=== PATIENT | male | born 1950 | race Caucasian/White ===

== ENCOUNTER 2020-12-13 08:31 | Outpatient (CLI) | payer BC | END 2020-12-13 08:32 | disposition home or self-care (01) | LOC: CSHCT 08:31 | PROVIDERS: ATTEND Internal Medicine Hematology & Oncology | DX: C34.31 Malignant neoplasm of lower lobe, right bronchus or lung (principal); J68.0 Bronchitis and pneumonitis due to chemicals, gases, fumes and vapors | CPT/HCPCS: 71260; 82565 ==

== ENCOUNTER 2021-08-26 08:24 | Outpatient (CLI) | payer BC, MEDICARE | END 2021-08-26 08:25 | disposition home or self-care (01) | LOC: CSHCT 08:24 | PROVIDERS: ATTEND Internal Medicine Hematology & Oncology | DX: C34.31 Malignant neoplasm of lower lobe, right bronchus or lung (principal); J68.0 Bronchitis and pneumonitis due to chemicals, gases, fumes and vapors; J90 Pleural effusion, not elsewhere classified; M48.54XA Collapsed vertebra, not elsewhere classified, thoracic region, initial encounter for fracture | CPT/HCPCS: 71260; 82565 ==

== ENCOUNTER 2021-11-04 09:02 | Outpatient (CLI) | payer BC | END 2021-11-04 09:03 | disposition home or self-care (01) | LOC: CSHCP 09:02 | PROVIDERS: ATTEND Internal Medicine | DX: C34.90 Malignant neoplasm of unspecified part of unspecified bronchus or lung (principal); R09.02 Hypoxemia | CPT/HCPCS: 94618 ==

== ENCOUNTER 2021-11-18 13:24 | Outpatient (CLI) | payer BC | END 2021-11-18 13:25 | disposition home or self-care (01) | LOC: CSHCT 13:24 | PROVIDERS: ATTEND Internal Medicine Hematology & Oncology | DX: C34.31 Malignant neoplasm of lower lobe, right bronchus or lung (principal); J68.0 Bronchitis and pneumonitis due to chemicals, gases, fumes and vapors | CPT/HCPCS: 71260; 82565 ==

== ENCOUNTER 2022-09-17 07:27 | Outpatient (CLI) | payer MEDICARE, BC | END 2022-09-17 07:28 | disposition home or self-care (01) | LOC: CSHCP 07:27 | PROVIDERS: ATTEND Internal Medicine | DX: J43.8 Other emphysema (principal); J44.9 Chronic obstructive pulmonary disease, unspecified; J96.11 Chronic respiratory failure with hypoxia; J98.8 Other specified respiratory disorders | CPT/HCPCS: 94010; 94726; 94729; 94760 ==

== ENCOUNTER 2023-01-27 08:32 | Outpatient (CLI) | payer MEDICARE, BC ==
[2023-01-27] MEDS ORDERED: Iopamidol 300 61% 100 ML VIAL FS ONE (09:19)
== END 2023-01-27 08:33 | disposition home or self-care (01) ==
LOC: CSHCT 08:32
PROVIDERS: ATTEND Internal Medicine Hematology & Oncology
DX: C34.90 Malignant neoplasm of unspecified part of unspecified bronchus or lung (principal); E03.9 Hypothyroidism, unspecified; J68.0 Bronchitis and pneumonitis due to chemicals, gases, fumes and vapors
CPT/HCPCS: 71260; 82565; Q9967

== ENCOUNTER 2023-08-11 08:17 | Outpatient (CLI) | payer MEDICARE, BC | END 2023-08-11 08:18 | disposition home or self-care (01) | LOC: CSHCT 08:17 | PROVIDERS: ATTEND Internal Medicine Hematology & Oncology | DX: C34.31 Malignant neoplasm of lower lobe, right bronchus or lung (principal) | CPT/HCPCS: 71260; 82565 ==

== ENCOUNTER 2024-07-04 12:01 | Outpatient (CLI) | payer MEDICARE ==
[~2024-07-04 12:01] MED LIST: Magnevist 469MG/ML 20 ML VIAL ONE
== END 2024-07-04 12:02 | disposition home or self-care (01) ==
LOC: CSHMRI 12:01
PROVIDERS: ATTEND Urology
DX: R97.20 Elevated prostate specific antigen [PSA] (principal); R93.89 Abnormal findings on diagnostic imaging of other specified body structures; N42.9 Disorder of prostate, unspecified
CPT/HCPCS: 36415; 72197; 82565

== ENCOUNTER 2024-08-15 08:53 | Outpatient (CLI) | payer MEDICARE | END 2024-08-15 08:54 | disposition home or self-care (01) | LOC: CSHCT 08:53 | PROVIDERS: ATTEND Internal Medicine Hematology & Oncology | DX: C34.31 Malignant neoplasm of lower lobe, right bronchus or lung (principal) | CPT/HCPCS: 71260; 82565 ==